=== PATIENT | male | born 1970 | race Caucasian/White ===

== ENCOUNTER 2020-07-09 11:39 | Emergency (ER) | payer OTHER, SELFPAY ==
[2020-07-09 11:45] VITALS: BP 158/110; PULSE 76; RESP 16; TEMP 36.8; O2SAT 95
--- NOTE | 2020-07-09 12:06 | ED.GENADULT ---
HPI - General Adult General Chief complaint: Unspecified Stated complaint: hemroide bleeding Source: patient Mode of arrival: ambulatory Limitations: no limitations History of Present Illness HPI narrative: This is a 50-year-old gentleman presents with some rectal bleeding has a hemorrhoid that burst and started bleeding earlier today, has some history of external hemorrhoids, currently there is no fever chills no nausea vomiting no abdominal pain and currently there is no rectal bleeding. Onset (ago): hour(s) Location: buttocks Radiation: non-radiation Severity: mild Quality: aching Pain Consistency: intermittent Relieving factors: none Exacerbating factors: none Associated symptoms: denies other symptoms Related Data Allergies Allergy/AdvReac Type Severity Reaction Status Date / Time No Known Allergies Allergy Mild Verified 03/31/10 21:09 Review of Systems Review of Systems: All systems reviewed & are unremarkable except as noted in HPI and below PMFSH Past Medical History Medical History External hemorrhoids Social History Social History Smoking status: Unknown if ever smoked Exam Const: General: cooperative, healthy appearing, comfortable, no acute distress, well developed, alert, awake and Physically active HENMT: Head: normal to inspection Ears: hearing grossly normal bilaterally General nose exam: Normal external nose present Mouth: Yes Normal oral and palatal mucosa present and Yes lip normal Throat: posterior oropharynx normal Eyes: General: appearance normal, both eyes and all related structures Conjunctivae: conjunctivae normal Sclera: sclerae normal EOM: EOMs intact bilaterally Chest: Chest palpation & inspection: normal inspection of the chest and normal palpation of entire chest wall Resp: Effort & Inspection: normal respiratory effort and able to speak in complete sentences Auscultation: clear to auscultation bilaterally Cardio: Jugular venous distension: no JVD Palpation: normal PMI Rate: regular rate Rhythm: regular rhythm Heart sounds: S1 normal heart sound present GI: Inspection: normal to inspection Other: has an external hemorrhoid that is currently flatten currently no bleeding with a scab is with excoriation at about the 8 o'clock position and currently no bleeding. Back/Spine/Pelvis: Back: no CVA tenderness Skin: General skin exam: normal color and no rashes or lesions noted Neuro: General: oriented to person, oriented to place, oriented to time and patient oriented x3 Psych: Appearance: grossly normal and well kempt Mental Status: mental status grossly normal Course Course Emergency Course: After examination patient does have a external hemorrhoid at about the 8 o'clock position has a scab currently no bleeding, advised patient to tack picker medication that I will sent to his pharmacy. Vital Signs Vital signs: Vital Signs Temperature 36.8 C 07/09/20 11:45 Pulse Rate 76 07/09/20 11:45 Respiratory Rate 16 07/09/20 11:45 Blood Pressure 158/110 H 07/09/20 11:45 Pulse Oximetry 95 07/09/20 11:45 Temperature 36.8 C 07/09/20 11:45 Pulse Rate 76 07/09/20 11:45 Respiratory Rate 16 07/09/20 11:45 Blood Pressure 158/110 H 07/09/20 11:45 Pulse Oximetry 95 07/09/20 11:45 Medical Decision Making Vital Signs Vital Signs: Vital Signs Temperature 36.8 C 07/09/20 11:45 Pulse Rate 76 07/09/20 11:45 Respiratory Rate 16 07/09/20 11:45 Blood Pressure 158/110 H 07/09/20 11:45 Pulse Oximetry 95 07/09/20 11:45 Temperature 36.8 C 07/09/20 11:45 Pulse Rate 76 07/09/20 11:45 Respiratory Rate 16 07/09/20 11:45 Blood Pressure 158/110 H 07/09/20 11:45 Pulse Oximetry 95 07/09/20 11:45 Critical Care Time Critical Care Time Critical Care Time: No Discharge Plan Discharge Clinical Impression: External
[2020-07-09 12:20] VITALS: RESP 16
== END 2020-07-09 12:21 | disposition home or self-care (01) ==
PROVIDERS: Emergency Provider Emergency Medicine
DX: K64.4 Residual hemorrhoidal skin tags (principal)
CPT/HCPCS: 99283

== ENCOUNTER 2020-07-18 08:31 | Outpatient (CLI) | payer OTHER, SELFPAY ==
--- NOTE | 2020-07-18 09:45 | EST_ITS ---
Patient Info Name: Nicho Conn Age: 50 years : 1970 Gender: Male Ht: 69 in Wt: 228 lbs BSA: 2.28 m2 HR: 83 bpm BP: 91 / 56 mmHg Heart Rhythm: Sinus Rhythm Technical Quality: Good Exam Date: 07/18/2020 9:19 AM Exam Location: [facility] Patient Status: Outpatient Admit Date: 07/18/2020 Staff Ordering Physician: Everette Marks DO Attending Provider: Everette Marks DO Exercise Technologist: Evita Lehman CRT Exercise Physician: Amirah Geiger CEP Exam Type: CA stress test treadmill Study Info Indications Severehypertension - A treadmill exercise stress test was performed. History/Risk Factors Hypertension: Yes Dyslipidemia: Yes History/Risk Factors hypertension. hypercholesterolemia. Summary 1. 1. Negative Wilian exercise stress test for ischemic ST changes by ECG criteria. 2. 2. Good functional capacity, achieving 10 METs of workload. 3. 3. Appropriate HR response to exercise. 4. 4. Appropriate HR recovery at 1 minute post exercise. 5. 5. Hypertensive response to exercise. 6. 6. No imaging with stress testing. Protocol: Wilian Stress ECG Details Stage: REST Duration (min): 1 min : 23 sec Speed (mph): 0.0 Grade (%): 0 HR (bpm): 81 SBP (mmHg): 91 DBP (mmHg): 56 METS: --- Stage: REST Duration (min): 2 min : 33 sec Speed (mph): 0.0 Grade (%): 0 HR (bpm): 83 SBP (mmHg): 91 DBP (mmHg): 56 METS: --- Stage: STAGE 1 Duration (min): 1 min : 0 sec Speed (mph): 1.7 Grade (%): 10 HR (bpm): 96 SBP (mmHg): 91 DBP (mmHg): 56 METS: --- Stage: STAGE 1 Duration (min): 2 min : 0 sec Speed (mph): 1.7 Grade (%): 10 HR (bpm): 101 SBP (mmHg): 91 DBP (mmHg): 56 METS: --- Stage: STAGE 1 Duration (min): 3 min : 0 sec Speed (mph): 1.7 Grade (%): 10 HR (bpm): 110 SBP (mmHg): 120 DBP (mmHg): 88 METS: --- Stage: STAGE 2 Duration (min): 1 min : 0 sec Speed (mph): 2.5 Grade (%): 12 HR (bpm): 121 SBP (mmHg): 120 DBP (mmHg): 88 METS: --- Stage: STAGE 2 Duration (min): 2 min : 0 sec Speed (mph): 2.5 Grade (%): 12 HR (bpm): 127 SBP (mmHg): 120 DBP (mmHg): 88 METS: --- Stage: STAGE 2 Duration (min): 3 min : 0 sec Speed (mph): 2.5 Grade (%): 12 HR (bpm): 132 SBP (mmHg): 120 DBP (mmHg): 88 METS: --- Stage: STAGE 3 Duration (min): 1 min : 0 sec Speed (mph): 3.4 Grade (%): 14 HR (bpm): 151 SBP (mmHg): 195 DBP (mmHg): 73 METS: --- Stage: STAGE 3 Duration (min): 2 min : 0 sec Speed (mph): 3.4 Grade (%): 14 HR (bpm): 159 SBP (mmHg): 195 DBP (mmHg): 73 METS: --- Stage: STAGE 3 Duration (min): 3 min : 0 sec Speed (mph): 3.4 Grade (%): 14 HR (bpm): 168 SBP (mmHg): 220 DBP (mmHg): 111 METS: --- Stage: RECOVERY Duration (
== END 2020-07-18 08:32 | disposition home or self-care (01) ==
PROVIDERS: PCP Family Medicine; Visit Provider Family Medicine
DX: I10 Essential (primary) hypertension (principal)
CPT/HCPCS: 93017

== ENCOUNTER 2020-08-08 00:28 | Outpatient (CLI) | payer OTHER, SELFPAY ==
[2020-08-08 19:06] LABS: SARS-CoV-2 RNA PCR Negative
== END 2020-08-08 00:29 | disposition home or self-care (01) ==
LOC: ANHCOVIDDT 00:28
PROVIDERS: PCP Family Medicine; Visit Provider Surgery
DX: Z01.812 Encounter for preprocedural laboratory examination (principal); Z20.822 Contact with and (suspected) exposure to COVID-19
CPT/HCPCS: C9803; U0003

== ENCOUNTER 2020-08-11 00:29 | Day surgery (SDC) | payer OTHER, SELFPAY ==
[2020-08-03 13:52] VITALS: BMI 32.5
[2020-08-11] MEDS: LACTATED RINGERS 1,000 ML 150 ML IV CONT (08:31)
[2020-08-11 08:33] VITALS: BP 120/76; PULSE 79; RESP 17; TEMP 36.1; O2SAT 97; BMI 32.8
--- NOTE | 2020-08-11 09:26 | PM.IMHP ---
H&P: HPI History of Present Illness Date/Time: 08/11/20 09:26 Chief Complaint: fam hx colon cancer Narrative: Nicho Conn is a 50 year old male who presents for colonoscopy. He was adopted and doesn't know his full fam hx, but he did connect with a sister through [employer] and found out she had colon cancer in her 40s. He denies any hematochezia or melena. Review of Systems Review of Systems: All systems reviewed & are unremarkable except as noted in HPI and below Constitutional: Constitutional: Denies chills, Denies fever(s), Denies headache(s) and Denies weight loss Eyes: Eyes: Denies change in vision ENT: Denies dizziness, Denies headache(s), Denies neck mass and Denies throat swelling Cardiovascular: Cardiovascular: Denies chest pain, Denies lightheadedness and Denies dyspnea Respiratory: Respiratory: Denies cough, Denies dyspnea and Denies wheezing Gastrointestinal: Gastrointestinal: Denies abdominal pain, Denies change in bowel habits, Denies nausea and Denies vomiting Genitourinary: Genitourinary: Denies hematuria and Denies dysuria Musculoskeletal: Musculoskeletal: Reports as per HPI Integumentary/Breasts: Skin/Breast: Reports as per HPI Neurologic: Denies dizziness and Denies headache(s) Allergic/Immunologic: Allergic/Immunologic: Denies throat swelling and Denies wheezing PMFSH Past Medical History Medical History External hemorrhoids Hypertension Surgical History Surgical History History of adenoidectomy 12-27-1978 Hx of tonsillectomy 12-27-1978 Family History Family History (Updated 08/11/20 @ 09:27 by Ricardo Whitney DO) Sibling Carcinoma of colon Social History Social History Smoking status: Never smoker Tobacco type: smokeless tobacco Smokeless tobacco user: chewing tobacco Alcohol intake: current Drinks per week: 1 Alcohol use details: BEERS Substance use: never Substance use type: does not use Spiritual care concerns: No Meds Home Medications and Allergies Home Medications Medication Instructions Recorded Confirmed Type atorvastatin 40 mg tablet 40 mg PO DAILY #90 tablet 07/12/20 08/11/20 Rx lisinopril 20 1 tablet PO DAILY #90 tablet 07/12/20 08/11/20 Rx mg-hydrochlorothiazide 25 mg tablet sildenafil (pulm.hypertension) 20 40 mg PO DAILY PRN #20 tablet 07/12/20 08/11/20 Rx mg tablet Allergies Allergy/AdvReac Type Severity Reaction Status Date / Time No Known Allergies Allergy Mild Verified 08/11/20 08:19 Vital Signs Vital Signs - 24 hr 08/11/20 08:33 Temperature 36.1 C L Pulse Rate 79 Respiratory Rate 17 Blood Pressure 120/76 Pulse Oximetry 97 Exam Const: General: no acute distress and alert Orientation/consciousness: patient oriented x3 HENMT: Head: normocephalic and atraumatic Ears: hearing grossly normal bilaterally General nose exam: Normal nares present Mouth: Yes Normal oral and palatal mucosa present Eyes: Periorbital: periorbital findings normal Sclera: sclerae normal EOM: EOMs intact bilaterally Neck: Neck: normal visual inspection, no lymphadenopathy and trachea midline Chest: Chest palpation & inspection: normal inspection of the chest Resp: Effort & Inspection: normal respiratory effort Auscultation: clear to auscultation bilaterally Cardio: Jugular venous distension: no JVD Rate: regular rate Rhythm: regular rhythm Heart sounds: S1 normal heart sound present and S2 normal heart sound present Peripheral pulses: Peripheral pulses 2+ throughout GI: Inspection: normal to inspection GI Palp: Yes Soft to palpation, No Tenderness to palpation present (GI), No Guarding due to palpation present (GI) and No Rebound tenderness present Percussion: Yes normal to percussion Auscultation: normal bowel sounds : General:
--- NOTE | 2020-08-11 09:36 | WPDANESEPPF ---
Anes - Initial Pre Proc Eval Procedure: Operation Date: 08/11/20 09:30 Proposed Procedures p Screening Colonoscopy - Ricardo Whitney DO Date/Time: 08/11/20 09:36 Surgeon: Ricardo Whitney DO Pre Op Diagnosis: Neoplasm Screening Patient Data Age: 50 Gender: M Height: 5 ft 9 in Weight: 100.7 kg Last Vital Signs Temp 97.0 F L 08/11/20 08:33 Pulse 79 08/11/20 08:33 Resp 17 08/11/20 08:33 BP 120/76 08/11/20 08:33 Pulse Ox 97 08/11/20 08:33 Allergies Allergy/AdvReac Type Severity Reaction Status Date / Time No Known Allergies Allergy Mild Verified 08/11/20 08:19 Home Medications Medication Instructions Recorded Confirmed Type atorvastatin 40 mg tablet 40 mg PO DAILY #90 tablet 07/12/20 08/11/20 Rx lisinopril 20 1 tablet PO DAILY #90 tablet 07/12/20 08/11/20 Rx mg-hydrochlorothiazide 25 mg tablet sildenafil (pulm.hypertension) 20 40 mg PO DAILY PRN #20 tablet 07/12/20 08/11/20 Rx mg tablet Patient hx anesthesia problems: none Family hx anesthesia problems: none PMFSH Past Medical History Medical History External hemorrhoids Hypertension Surgical History Surgical History History of adenoidectomy 12-27-1978 Hx of tonsillectomy 12-27-1978 Family History Family History (Updated 08/11/20 @ 09:27 by Ricardo Whitney DO) Sibling Carcinoma of colon Social History Social History Smoking status: Never smoker Tobacco type: smokeless tobacco Smokeless tobacco user: chewing tobacco Alcohol intake: current Drinks per week: 1 Alcohol use details: BEERS Substance use: never Substance use type: does not use Spiritual care concerns: No Anes - Eval Final PreProcedure Day of Procedure 08/11/20 09:36 Patient weight: overweight Heart: regular rate and rhythm Lungs: clear to auscultation Airway: Mallampati scale class II Neurological: alert and oriented Last oral intake: >/= 8 hours ASA classification: III Emergent: no Anesthetic plan: proceed Anesthesia type and monitoring: general GIVS and standard monitoring Informed Consent: The patient's anesthetic plan and its attendant risks and benefits were discussed with the patient/family/POA. Questions were solicited and answers provided to the satisfaction of the patient/family/POA.
[2020-08-11 10:47] VITALS: BP 90/54; PULSE 74; RESP 17; O2SAT 95
[2020-08-11 10:57] VITALS: BP 111/54; PULSE 77; RESP 21; O2SAT 96
[2020-08-11 11:07] VITALS: BP 122/85; PULSE 74; RESP 20; O2SAT 96
== END 2020-08-11 11:17 | disposition home or self-care (01) ==
PROVIDERS: PCP Family Medicine; Visit Provider Surgery
PROC: 0DJD8ZZ Inspection of Lower Intestinal Tract, Via Natural or Artificial Opening Endoscopic (ICD-10-PCS; CPT 45378; principal; 2020-08-11 09:30)
DX: Z12.11 Encounter for screening for malignant neoplasm of colon (principal); K57.30 Diverticulosis of large intestine without perforation or abscess without bleeding; Z80.0 Family history of malignant neoplasm of digestive organs; I10 Essential (primary) hypertension; F17.220 Nicotine dependence, chewing tobacco, uncomplicated
CPT/HCPCS: 45378; C9803; J2704; J7120; U0003

== ENCOUNTER 2021-03-27 07:59 | Outpatient (CLI) | payer OTHER, SELFPAY ==
[2021-03-27 09:00] LABS: SARS-CoV-2 Ag Negative (Negative)
== END 2021-03-27 08:00 | disposition home or self-care (01) ==
LOC: CHSLAB 08:01
PROVIDERS: PCP Family Medicine; Visit Provider Family Medicine
DX: Z20.822 Contact with and (suspected) exposure to COVID-19 (principal)
CPT/HCPCS: 87426; C9803

== ENCOUNTER 2021-07-27 07:39 | Outpatient (CLI) | payer OTHER, SELFPAY ==
[2021-07-27 08:53] LABS: SARS-CoV-2 RNA PCR Positive (Negative)
== END 2021-07-27 07:40 | disposition home or self-care (01) ==
LOC: CHSLAB 07:43
PROVIDERS: PCP Family Medicine; Visit Provider Nurse Practitioner Family
DX: U07.1 COVID-19 (principal)
CPT/HCPCS: C9803; U0003; U0005

== ENCOUNTER 2021-07-28 07:55 | Outpatient (CLI) | payer OTHER, SELFPAY ==
[2021-07-28 07:59] VITALS: BMI 33.4
[2021-07-28 08:17] VITALS: BP 106/76; PULSE 78; RESP 14; TEMP 36.7; O2SAT 96
[2021-07-28] MEDS: ACETAMINOPHEN 325 MG TABLET 650 MG PO (08:25)
[2021-07-28] MEDS: diphenhydrAMINE HCl CAP 25 MG CAPSULE PO (08:26)
[2021-07-28] MEDS: FAMOTIDINE 20 MG TABLET PO (08:26)
--- NOTE | 2021-07-28 08:56 | PC.NURSE ---
Patient here for Bamlanivimab+Etesevimab IV infusion r/t positive for covid and meets criteria per order. Education on medication given oral and written. No concerns voiced. Permit signed. IV Bamlanivimab+Etesevimab administered SEE SEP. Tolerated well. No s/sx of reaction noted or reported. Safe exit of hospital.
== END 2021-07-28 07:56 | disposition home or self-care (01) ==
LOC: CHSTREATRM 07:57
PROVIDERS: PCP Family Medicine; Visit Provider Nurse Practitioner Family
DX: U07.1 COVID-19 (principal); I10 Essential (primary) hypertension
CPT/HCPCS: A9270; M0245; Q0245

== ENCOUNTER 2022-04-25 09:50 | Outpatient (CLI) | payer OTHER, SELFPAY ==
[2022-04-25 10:02] LABS: Hematocrit 41.4 % (40.0-54.0); Hemoglobin 14.1 g/dL (14.0-18.0); Mean Corpuscular HGB Conc 34.1 g/dL (32.0-36.0); Mean Corpuscular Volume 85.2 fL (78.0-102.0); Mean Platelet Volume 8.9 fl (8.7-11.0); Platelet Count Result 315 K/mm3 (150-420); Red Blood Count 4.86 M/mm3 (4.70-6.10); Red Cell Distribution Width 12.6 % (11.6-14.4); White Blood Count 8.5 K/mm3 (4.8-10.8)
[2022-04-25 10:28] LABS: Alanine Aminotransferase 21 U/L (16-63); Albumin Level 3.8 g/dL (3.4-5.0); Alkaline Phosphatase 80 U/L (46-116); Anion Gap 9 mmol/L (8-16); Aspartate Amino Transferase 18 U/L (15-37); Bilirubin,Total 0.2 mg/dL (0.00-1.00); Blood Urea Nitrogen 13 mg/dL (7-18); Calcium 8.9 mg/dL (8.5-10.1); Carbon Dioxide 28 mmol/L (21-32); Chloride 102 mmol/L (98-108); Cholesterol 137 mg/dL (0-200); Estimated Glomerular Filt Rate > 60; Glucose 102 mg/dL (70-99); HDL Direct 45 mg/dL (40-60); LDL Cholesterol Calculated 42 mg/dL (<130); Osmolality Calculated 288 mOsm/kg (285-295); Sodium 139 mmol/L (136-145); Thyroid Stimulating Hormone Reflex 0.78 u/IU/mL (0.36-3.74); Total Protein 7.1 g/dL (6.4-8.2); Triglycerides 252 mg/dL (0-150)
== END 2022-04-25 09:51 | disposition home or self-care (01) ==
LOC: CHSLAB 09:53
PROVIDERS: PCP Family Medicine; Visit Provider Family Medicine
DX: E11.9 Type 2 diabetes mellitus without complications (principal); I10 Essential (primary) hypertension
CPT/HCPCS: 36415; 80053; 80061; 84443; 85027

== ENCOUNTER 2024-03-09 20:28 | Emergency (ER) | payer OTHER, SELFPAY ==
[2024-03-09 20:31] VITALS: BP 175/103; PULSE 75; RESP 18; TEMP 36.1; O2SAT 98
--- NOTE | 2024-03-09 20:44 | ED.GENADULT ---
HPI - General Adult General Chief complaint: Unspecified Stated complaint: high blood pressure Time Seen by Provider: 03/09/24 20:44 Source: patient Mode of arrival: ambulatory Limitations: no limitations History of Present Illness HPI narrative: 54-year-old white male with a history of hypertension hyperlipidemia was out of his medicine for 3 days and then started back up 3 days ago. Today's blood pressure was 160/104 prior to coming to the emergency room. He had taken his lisinopril hydrochlorothiazide 20/25 over the last 3 days. Complains of feeling anxious and tingling in his hands feels tired a lot felt lightheaded earlier. Denies any chest pain shortness of breath cough fever nausea vomiting diarrhea problems voiding or stooling. He saw Dr. Marks snores practitioner 3 days ago and got his refill and also talked to him about bump on the bottom of his left foot which looks to be a plantar wart and a rash on his right arm which he has been given antifungal cream which has been improved. Patient has no other rashes or other lumps or bumps denies any nausea vomiting diarrhea bleeding or bruising or any other complaints. Past medical history hypertension hyperlipidemia has a history of anxiety and panic attacks does not take any for this. He had a normal stress test several years ago. His doctor Dr. Marks as patient and saw him his nurse practitioner 3 days ago Related Data Allergies Allergy/AdvReac Type Severity Reaction Status Date / Time No Known Allergies Allergy Mild Verified 03/06/24 15:55 Review of Systems Review of Systems: All systems reviewed & are unremarkable except as noted in HPI and below PMFSH Past Medical History Medical History External hemorrhoids TRAVIS (generalized anxiety disorder) (10/18/17) Headache (10/18/17) Hypertension Shingles (12/02/17) Surgical History Surgical History History of adenoidectomy 12-27-1978 Hx of tonsillectomy 12-27-1978 Family History Family History Sibling Carcinoma of colon Social History Social History Smoking status: Never smoker Tobacco type: smokeless tobacco Smokeless tobacco user: chewing tobacco Alcohol intake: current Drinks per week: 1 Alcohol use details: BEERS Substance use: never Substance use type: does not use Spiritual care concerns: No Exam Narrative: White male patient with no apparent distress.? blood pressure 175/103 repeat 167/98 rest of his vital signs were normal. Head normocephalic, atraumatic.? Eyes conjunctiva pink sclera nonicteric.? Extraocular movements are intact.? Ears externally normal.? Oropharynx is clear with moist mucous membranes without exudates.? Neck is supple nontender no lymphadenopathy.? Back is nontender.? Lungs are clear.? Heart is regular rate and rhythm without murmurs gallops or rubs.? Chest wall nontender. Abdomen is soft and nontender no hepatosplenomegaly or masses no CVA tenderness no abdominal bruits.? Extremities no cyanosis clubbing or edema.? Skin is warm and dry without Lesions. He has got erythematous macular papular rash in his right biceps area. And a plantar wart on the bottom of his left foot.? Neurological patient is alert and oriented x4.? Motor and sensory grossly intact.? Gait is normal. Course Vital Signs Vital signs: Vital Signs Temperature 36.1 C L 03/09/24 20:31 Pulse Rate 75 03/09/24 20:31 Respiratory Rate 18 03/09/24 20:31 Blood Pressure 175/103 H 03/09/24 20:31 Pulse Oximetry 98 03/09/24 20:31 Oxygen Delivery Room Air 03/09/24 20:31 Temperature 36.1 C L 03/09/24 20:31 Pulse Rate 75 03/09/24 20:31 Respiratory Rate 18 03/09/24 20:31 Blood Pressure 175/103 H 03/09/24 20:31 Pulse Oximetry 98 03/09/24 20:3
[2024-03-09 20:45] VITALS: BP 156/100; PULSE 72; RESP 18; O2SAT 98
--- NOTE | 2024-03-09 20:57 | PC.NURSE ---
Dr Jimenez at the bedside
[2024-03-09 21:01] VITALS: BP 167/98
--- NOTE | 2024-03-09 21:10 | ECG_ITS ---
Test Date: 2024-03-09 21:25:25 Measurements Intervals [place] Rate: 65 P: 16 SD: 225 QRS: -47 QRSD: 133 T: -5 QT: 436 QTc: 453 Interpretive Statements SINUS RHYTHM WITH FIRST DEGREE AV BLOCK RIGHT BUNDLE BRANCH BLOCK [120+ ms QRS DURATION, UPRIGHT V1, 40+ ms S IN I/aVL/V4/V5/V6] LEFT ANTERIOR FASCICULAR BLOCK [QRS AXIS <= -45, QR IN I, RS IN II] MINIMAL VOLTAGE CRITERIA FOR LVH, CONSIDER NORMAL VARIANT [MEETS CRITERIA IN ONE OF: R(aVL), S(V1), R(V5), R(V5/V6)+S(V1)] No previous ECG available for comparison Electronically Signed On 03-10-2024 08:48:36 CDT by Tommy Bone M.D.
[2024-03-09] MEDS: LORazepam (*CRX) 1 MG TABLET PO (21:14)
--- NOTE | 2024-03-09 21:28 | PC.NURSE ---
patient is resting on stretcher. turned blood pressure monitor off so patient would not focus so hard on his blood pressure numbers. will do spot checks
--- NOTE | 2024-03-09 21:35 | PC.NURSE ---
lab is at the bedside
[2024-03-09 21:55] LABS: Hematocrit 40.8 % (40.0-54.0); Hemoglobin 13.9 g/dL (14.0-18.0); Mean Corpuscular HGB Conc 34.1 g/dL (32-36); Mean Corpuscular Hemoglobin 28.5 pg (27.0-31.0); Mean Corpuscular Volume 83.8 fL (78.0-102.0); Platelet Count Result 374 K/mm3 (150-420); Red Blood Count 4.87 M/mm3 (4.70-6.10); Red Cell Distribution Width 12.1 % (11.6-14.4); White Blood Count 11.2 K/mm3 (4.8-10.8)
[2024-03-09 21:58] VITALS: BP 130/89; PULSE 65; RESP 18; O2SAT 96
[2024-03-09 22:05] LABS: Alanine Aminotransferase 16 U/L (16-63); Albumin Level 3.9 g/dL (3.4-5.0); Alkaline Phosphatase 73 U/L (46-116); Anion Gap 10 mmol/L (4-12); Aspartate Amino Transferase 21 U/L (15-37); Bilirubin,Total 0.6 mg/dL (0.00-1.00); Blood Urea Nitrogen 10 mg/dL (7-18); Calcium 9.2 mg/dL (8.5-10.1); Carbon Dioxide 27 mmol/L (21-32); Chloride 92 mmol/L (98-108); Estimated CRCL calculation 124 ml/min; Estimated Glomerular Filt Rate > 60; Glucose 89 mg/dL (70-99); Magnesium 1.5 mg/dL (1.8-2.4); Osmolality Calculated 266 mOsm/kg (285-295); Potassium 3.4 mmol/L (3.5-5.1); Sodium 129 mmol/L (136-145); Total Protein 7.4 g/dL (6.4-8.2)
--- NOTE | 2024-03-09 22:12 | PC.NURSE ---
patient is resting on stretcher. at the bedside. denies any needs. call light in reach
--- NOTE | 2024-03-09 22:33 | PC.NURSE ---
Dr Jimenez coming out of the room
[2024-03-09] MEDS: MAGNESIUM OXIDE 400 MG TABLET PO (22:39)
[2024-03-09] MEDS: POTASSIUM CHLORIDE 20 MEQ PACKET (FOR LIQUID) 40 MEQ PO (22:39)
--- NOTE | 2024-03-09 22:42 | PC.NURSE ---
patient ambulated self down to the bathroom. patient denies any dizziness while walking
--- NOTE | 2024-03-09 22:51 | PC.NURSE ---
patient is back in room. currently waiting on discharge instructions from Dr Jimenez
== END 2024-03-09 22:59 | disposition home or self-care (01) ==
PROVIDERS: Emergency Provider Emergency Medicine; PCP Family Medicine
DX: I10 Essential (primary) hypertension (principal); E78.5 Hyperlipidemia, unspecified; E87.1 Hypo-osmolality and hyponatremia; E83.42 Hypomagnesemia; E87.6 Hypokalemia; F41.9 Anxiety disorder, unspecified
CPT/HCPCS: 36415; 80053; 83735; 85027; 93005; 99283; A9270

== ENCOUNTER 2025-06-18 13:12 | Outpatient (CLI) | payer OTHER, SELFPAY ==
--- OUTSIDE RECORDS SUMMARY | 2025-06-18 13:13 | XMS_ITS | Clinical Summary ---
Author Organization [facility] Address [address] [place] [id number] Care Team Providers Care Hospital Product Specialist Name Role Phone Unavailable Primary Care Provider Unavailabl e Social History Tobacco Use Types Packs/Day Years Used Date Smoking Tobacco: Never Assessed Sex and Gender Information Value Date Recorded Sex Assigned at Not on file Legal Sex Male 4:44 PM CDT Gender Identity Not on file Sexual Orientation Not on file Plan of Treatment Health Maintenance Due Date Last Done Comments Colorectal Cancer Screening Colonoscopy (10 Years) 1970 Annual Physical 01/20/1975 Hepatitis C 01/20/1990 DTaP, Tdap and Td Vaccines ( 1 - Tdap) 01/20/1991 Hepatitis B Vaccines (1 of 3 - 19+ 3-dose series) 01/20/1991 Pneumococcal Vaccine: 50+ Ye ars (1 of 1 - PCV) 01/20/2022 Zoster Vaccines (1 of 2) 01/20/2022 COVID-19 Vaccine ( - 2024-2 6 season) 2025 Influenza Adult (#1) 2025 Hepatitis A Vaccines Aged Out No long er eligible based on patient's age to complete this topic Meningococcal B Vaccine Aged Out No l onger eligible based on patient's age to complete this topic Meningococcal Vaccine Aged Out No bairon main eligible based on patient's age to complete this topic RSV Immunizations Under 20 Months Aged Out No longer eligible based on patient's age to complete this topic
[2025-06-18 13:24] LABS: Hematocrit 43.7 % (40.0-54.0); Hemoglobin 14.7 g/dL (14.0-18.0); Immature Granulocyte Percent A 0.8 % (0.0-0.0); Lymphocytes Absolute Auto 2.42 K/mm3 (1.10-4.50); Mean Corpuscular HGB Conc 33.6 g/dL (32-36); Mean Corpuscular Hemoglobin 29.0 pg (27.0-31.0); Mean Corpuscular Volume 86.2 fL (78.0-102.0); Nucleated Red Blood Cells Absolute Auto 0.00 K/mm3 (0.00-0.00); Nucleated Red Blood Cells Perc 0.0 % (0-0.0); Platelet Count Result 362 K/mm3 (150-420); Red Blood Count 5.07 M/mm3 (4.70-6.10); White Blood Count 9.8 K/mm3 (4.8-10.8)
[2025-06-18 13:53] LABS: Alanine Aminotransferase 19 U/L (6-50); Albumin Level 5.2 g/dL (3.5-5.1); Alkaline Phosphatase 54 U/L (38-126); Anion Gap 14 mmol/L (4-12); Aspartate Amino Transferase 31 U/L (17-59); Bilirubin,Total 0.5 mg/dL (0.2-1.3); Blood Urea Nitrogen 15 mg/dL (9-20); Calcium 10.1 mg/dL (8.4-10.2); Carbon Dioxide 24 mmol/L (22-30); Chloride 99 mmol/L (98-107); Cholesterol 290 mg/dL (0-200); Estimated Glomerular Filt Rate > 60; Glucose 91 mg/dL (65-110); HDL Direct 65 mg/dL; Osmolality Calculated 284 mOsm/kg (285-295); Potassium 4.7 mmol/L (3.4-5.0); Sodium 137 mmol/L (137-145); Total Protein 8.1 g/dL (6.3-8.2); Triglycerides 142 mg/dL (<150)
[2025-06-18 14:23] LABS: Thyroid Stimulating Hormone Reflex 0.387 uIU/mL (0.465-4.68)
[2025-06-18 16:58] LABS: Free T4 Free Thyroxine Reflex 1.04 ng/dL (0.78-2.19)
[2025-06-21 13:11] LABS: Total Triiodothyronine (T3) 1.21
== END 2025-06-18 13:13 | disposition home or self-care (01) ==
LOC: CHSLAB 13:12
PROVIDERS: PCP Family Medicine; Visit Provider Family Medicine
DX: E03.9 Hypothyroidism, unspecified (principal); F41.1 Generalized anxiety disorder
CPT/HCPCS: 36415; 80053; 80061; 84439; 84443; 84480; 85025

== ENCOUNTER 2025-07-07 13:24 | Outpatient (CLI) | payer OTHER, SELFPAY ==
--- NOTE | ~2025-07-07 | XR_ITS ---
EXAMINATION: XR shoulder LT min 2V, 07/07/2025 13:35 [employer]LE[employer] MECH[employer]IC HISTORY: CHRONIC SHOULDER PAIN COMPARISON: No comparisons available. Findings: No acute fracture or malalignment. No significant degenerative changes. Soft tissues unremarkable. Impression: No acute fracture or malalignment. Reviewed, dictated and finalized at location P. TYPE MECHANIC Impression: No acute fracture or malalignment.
[2025-07-07 13:58] LABS: Troponin I < 0.012 ng/mL (0.000-0.034)
== END 2025-07-07 13:25 | disposition home or self-care (01) ==
PROVIDERS: PCP Family Medicine; Visit Provider Family Medicine
DX: F41.1 Generalized anxiety disorder (principal); M25.512 Pain in left shoulder
CPT/HCPCS: 36415; 73030; 84484